=== PATIENT | male | born 1975 | race Caucasian/White ===

== ENCOUNTER 2025-06-22 14:06 | Emergency (ER) | payer MEDICARE, SELFPAY ==
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
--- NOTE | 2025-06-22 13:56 | CT_ITS ---
FINAL REPORT TECHNIQUE: Thin section axial images were obtained from the aortic arch to the skull base after intravenous contrast injection per CTA protocol. Multiplanar reconstruction images were obtained. Exam was performed using dose reduction techniques and the ALARA principle. CLINICAL HISTORY: trauma, critical injury suspected FINDINGS: CTA NECK: Aortic arch: There is a normal three-vessel configuration to the aortic arch. There is no significant stenosis of the great vessels at their origins. Right carotid artery: The right common carotid artery is patent without stenosis. The cervical portions of the right internal carotid artery are patent without stenosis. 0% stenosis per NASCET criteria. Left carotid artery: The left common carotid artery is patent without stenosis. There is a small amount of calcified plaque at the left carotid bulb measuring less than 30% stenosis. Remaining ICA is patent. 30% stenosis per NASCET criteria. Vertebral arteries: The vertebral arteries are patent. No significant stenosis. Other soft tissues: There is abnormal soft tissue density surrounding the right submandibular salivary gland, etiology unclear. Findings could be inflammatory. Neoplasm felt less likely. There is periapical lucency surrounding the posterior most right mandibular molar. Periapical abscess not excluded. IMPRESSION: 1. 0% stenosis of the right carotid artery, less than 30% stenosis of the left carotid artery. 2. Patent vertebral arteries. 3. Abnormal soft tissue attenuation surrounding the right submandibular salivary gland which could be infectious or inflammatory. Recommend clinical correlation. 4. Possible periapical abscess associated with a posterior right mandibular molar. Reviewed, Interpreted and Dictated by Leonor Mendoza MD Transcribed by Dominga Bustamante Authenticated and [facility]
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
--- NOTE | 2025-06-22 13:57 | CT_ITS ---
FINAL REPORT TECHNIQUE: Thin section axial images were obtained through the face without contrast. Coronal reconstruction images are obtained from the axial data. Exam was performed using dose reduction techniques such as automated exposure control, adjustment of the mA and kV according to patient size, and use of iterative reconstruction technique. CLINICAL HISTORY: trauma, critical injury suspected FINDINGS: There is irregularity of the anterior aspect of the right nasal bone concerning for nondisplaced fracture. There is adjacent subcutaneous air. A chronic appearing deformity is seen of the anterior wall of the right maxillary sinus. There is mucoperiosteal thickening of the bilateral maxillary sinuses, ethmoid air cells and frontal sinus. No other acute osseous abnormality is seen. Evaluation of the soft tissues is limited due to the fact that no soft tissue windows were submitted. There is edema surrounding the right submandibular salivary gland. Dental caries are noted. IMPRESSION: 1. Right nasal bone fracture. 2. Likely chronic defect of the anterior wall of the right maxillary sinus. 3. Nonspecific edema surrounding the right submandibular salivary gland. Recommend clinical correlation. Reviewed, Interpreted and Dictated by Leonor Mendoza MD Transcribed by Dominga Bustamante Authenticated and [facility]
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
--- NOTE | 2025-06-22 13:57 | XR_ITS ---
FINAL REPORT TECHNIQUE: Single view chest CLINICAL HISTORY: trauma FINDINGS: A single view of the chest was obtained. The heart and mediastinum are within normal limits. There are low lung volumes. Bibasilar opacities are seen, right greater than left which may present atelectasis or pneumonia. There is no pneumothorax. Bilateral rib fractures are seen including a right third and left fifth rib fracture. Please see CT for further evaluation. IMPRESSION: Bibasilar opacities, right greater than left which may resent atelectasis or pneumonia. Bilateral rib fractures without pneumothorax. Reviewed, Interpreted and Dictated by Leonor Mendoza MD Transcribed by Dominga Bustamante Authenticated and [facility]
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
[2025-06-22 14:04] LABS: Hematocrit 40.5 % (42.0-52.0); Hemoglobin 13.6 g/dL (14.1-18.0); Immature Granulocytes % 0.7 %; Mean Corpuscular HGB Conc 33.6 g/dL (31.8-35.4); Mean Corpuscular Hemoglobin 29.9 pg (27.0-31.2); Mean Corpuscular Volume 89.0 fl (80-94); Nucleated Red Blood Cells % 0 %; Platelet Count 321 K/mm3 (142-424); Red Blood Count 4.55 M/mm3 (4.60-6.20); Red Cell Distribution Width-SD 41.3 fL; White Blood Count 21.0 K/mm3 (4.8-10.8)
[2025-06-22 14:07] VITALS: BP 125/90; PULSE 88; RESP 15; TEMP 36.9; O2SAT 96; BMI 28.1
[2025-06-22 14:07] LABS: Albumin Level 4.1 g/dl (3.5-5.0); Chloride 106 mmol/L (98-107)
[2025-06-22 14:08] LABS: Microscopic, Urine URINE MICROSCOPIC (MICROSCOPIC)
[2025-06-22 14:08] LABS: Potassium 3.8 mmoL/L (3.5-5.1); Sodium 138 mmol/L (136-145)
[2025-06-22 14:10] LABS: Blood Urea Nitrogen 12 mg/dl (9-20); Creatinine,Serum 0.80 mg/dl (0.66-1.25); Estimated Glomerular Filt Rate 102 ml/min (>60); GFR (African American) 123 ML/MIN (>60)
[2025-06-22 14:11] LABS: Alanine Aminotransferase 343 U/L (12-78); Albumin/Globulin Ratio 1.5 (1.1-1.8); Alkaline Phosphatase 84 U/L (38-126); Anion Gap 10.8 mEq/L (5-15); Aspartate Amino Transferase 583 U/L (17-59); Bilirubin,Total 0.6 mg/dl (0.2-1.3); Calcium 8.7 mg/dl (8.4-10.2); Carbon Dioxide 25 mmol/L (22.0-30.0); Globulin 2.7 g/dL (1.3-3.2); Glucose 196 mg/dl (74-100); Total Protein,Serum 6.8 g/dl (6.3-8.2)
--- NOTE | 2025-06-22 14:13 | PC.NURSE ---
states a FAST exam is not needed at this time due to the pt not being hypotensive.
[2025-06-22 14:22] LABS: Troponin I 0.15 ng/ml (0.00-0.034)
[2025-06-22] MEDS: SODIUM CHLORIDE 0.9% 10ML SYR (RAD ONLY) 10 ML IV (14:22)
[2025-06-22] MEDS: IOPAMIDOL-370 (76%);100ML BOTTLE 80 ML IV ×2 (14:22→14:23)
[2025-06-22] MEDS: 0.9 % SODIUM CHLORIDE 50 ML VIAL IV ×2 (14:22)
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
--- OUTSIDE RECORDS SUMMARY | 2025-06-22 14:23 | XMS_ITS | Clinical Summary ---
Author Organization [facility] Address [address] [place] [id number] Care Team Providers Care Community Ambassador Name Role Phone Unknown, Attending Provider Primary Care Provide r Unavailable Source Comments This information has been disclosed to you from confidential records protectedfrom disclosure by state law. You shall make no further disclosure of thisinformation without the specific, written, and informed release of theindividual to whom it pertains, or as otherwise permitted by law. A generalauthorization for the release of medical or other information is not sufficientfor the purposes of therelease of HIV test results or diagnoses. [id number] Allergies No known active allergies Immunizations Immunization Administration Dates Next Due tdap 11/04/2024 Social History Tobacco Use Types Packs/Day Years Used Date Smoking Tobacco: Never Assessed Sex and Gender Information Value Date Recorded Sex Assigned at Not on file Legal Sex Male 7:59 PM EST Gender Identity Not on file Sexual Orientation Not on file Last Filed Vital Signs Vital Sign Reading Time Taken Comments Blood Pressure 128/91 11/04/2024 11:51 PM EST Pulse 84 11/04/2024 11:51 PM EST Temperature 36.5 C (97.7 F) 11/04/2024 4:39 PM EST Respiratory Rate 24 11/04/2024 11:51 PM EST Oxygen Saturation 99% 11/04/2024 11:51 PM EST Inhaled Oxygen Concentration 99% 11/04/2024 1 1:51 PM EST Weight - - Height - - Body Mass Index - - Plan of Treatment Health Maintenance Due Date Last Done Comments Abnormal Colonoscopy Follow Up 1973 Hepatitis C Screening (MyChart) 1973 Pulmonary Function Testing 1973 Alcohol Misuse Screening 12/18/1991 Depression Screening 12/18/1991 HIV Screening 12/18/1991 Immunization: Hepatitis B (1 of 3 - 19+ 3-dose series) 1992 Immunization: Pneumococcal (1 of 2 - PCV) 1992 Cologuard (FIT-DNA) 2018 Colonoscopy 2018 Colorectal Cancer Screening (MyChart) 2018 Stool Testing (gFOBT) 2018 Immunization: Zoster (1 of 2) 12/18/2023 Immunization: COVID-19 ( season) 2025 Immunization: Influenza (MyChart) (#1) 2025 Immunization: DTaP/Tdap/Td (2 - Td or Tdap) 11/04/2034 11/04/2024 Insurance LIABILITY Member Subscriber Plan / Payer (Ef fective 2024-Present) Name:Sandeep Hernandez Relation to Subscriber:Self Name:Sandeep Hernandez Payer ID:[id number] Group ID:[id number] Type:Indemnity Address: [facility] [address] [place] [address] MEDICARE A AND B Care Teams Community Ambassador Relationship Specialty Start Date End Date Unknown, Attending Provider PCP - General 11/04/24
[2025-06-22 14:27] LABS: Activated Partial Thrombo Time 21.9 seconds (22.8-30.6); INR 0.96 (0.9-1.1); Prothrombin Time 10.7 seconds (10.1-12.5)
[2025-06-22 14:29] LABS: Barbiturates Screen,Urine Negative ng/ml (<200)
[2025-06-22 14:30] LABS: Benzodiazepines Screen,Urine Positive ng/ml (<200); Bilirubin,Urine Negative (Negative); Color,Urine YELLOW (Yellow); Glucose,Urine (UA) Negative (Negative); Ketones,Urine Negative (Negative); Leukocyte Esterase,Urine Negative (Negative); PH,Urine 6.5 (5.0-8.5); Protein,Urine TRACE (Negative); Specific Gravity, Urine 1.020 (1.005-1.030); Urobilinogen,Urine 1.0 EU/dl (0.2)
[2025-06-22 14:31] LABS: Methadone Screen,Urine Negative ng/ml (<300)
[2025-06-22 14:33] LABS: Opiate Screen,Urine Negative ng/ml (<300)
[2025-06-22 14:34] LABS: Phencyclidine Screen,Urine Negative ng/ml (<25)
[2025-06-22 14:34] LABS: RBC Morphology Normal; Total Cells Counted 100
[2025-06-22 14:39] LABS: Bacteria,Urine Trace /lpf; Squamous Epithelial Cell,Urine Occasional #/hpf (0-5)
[2025-06-22 14:43] VITALS: BP 143/96; PULSE 87; O2SAT 97
[2025-06-22 15:00] VITALS: BP 139/93; PULSE 85; O2SAT 99
--- NOTE | 2025-06-22 15:16 | ECG_ITS ---
APPROVED REPORT Exam: Resting ECG HR:89 bpm ECG Measurements Heart Rate 89 AXES IA 140 P 75 QRSd 93 QRS 83 QT 372 T 106 QTc 419 Conclusion SINUS RHYTHM INCOMPLETE RIGHT BUNDLE BRANCH BLOCK [90+ ms QRS DURATION, TERMINAL R IN V1/V2, 40+ ms S IN I/aVL/V4/V5/V6] MODERATE ST DEPRESSION [0.05+ mV ST DEPRESSION] ABNORMAL ECG Electronically signed by : OH ORNELAS, 06/25/2025 09:27:52
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
[2025-06-22 15:30] VITALS: BP 128/92; PULSE 88; O2SAT 95
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
[2025-06-22 16:00] VITALS: BP 141/99; PULSE 86; RESP 23; O2SAT 95
--- NOTE | 2025-06-22 16:33 | PC.NURSE ---
[facility] CONTACTED FOR FLIGHT TRANSPORT IF POSSIBLE
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
[2025-06-22 16:54] VITALS: BP 126/86; PULSE 89; RESP 15; TEMP 36.9; O2SAT 93
[2025-06-22 17:13] LABS: Lipase 929 U/L (23-300)
== END 2025-06-22 16:58 | disposition other institution (70) ==
PROVIDERS: Student in an Organized Health Care Education/Training Program; Emergency Provider Student in an Organized Health Care Education/Training Program
DX: S36.039A Unspecified laceration of spleen, initial encounter (principal); S36.113A Laceration of liver, unspecified degree, initial encounter; S27.0XXA Traumatic pneumothorax, initial encounter; S27.321A Contusion of lung, unilateral, initial encounter; S22.32XA Fracture of one rib, left side, initial encounter for closed fracture; S02.2XXA Fracture of nasal bones, initial encounter for closed fracture; K66.1 Hemoperitoneum; R40.0 Somnolence; F14.90 Cocaine use, unspecified, uncomplicated; F13.90 Sedative, hypnotic, or anxiolytic use, unspecified, uncomplicated; F17.210 Nicotine dependence, cigarettes, uncomplicated; V49.40XA Driver injured in collision with unspecified motor vehicles in traffic accident, initial encounter
CPT/HCPCS: 70450; 70486; 70496; 70498; 71045; 71275; 72125; 72128; 72131; 72170; 73562; 74174; 80053; 80307; 80320; 80324; 81001; 83690; 84484; 85007; 85025; 85610; 85730; 93005; 99285; 99291; Q9967

== ENCOUNTER 2025-07-10 05:58 | Emergency (ER) | payer MEDICARE, SELFPAY ==
--- OUTSIDE RECORDS SUMMARY | 2025-06-22 17:45 | XMS_ITS | Encounter Summary ---
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 Routine, congestion sodium chloride 0.9 % flush 10 mL(Linked Group 1) 10 mL, Intravenous, As needed, Starting on Sun06/22/25 at 2106, Until Sun06/30/25 at 1557, Routine, line care Linked Groups Order Group 1: Insert peripheral IV (COMPLETED) Once, On Sun06/22/25 at 210, For 1 occurrence And Saline lock IV (COMPLETED) Once, On Sun06/22/25 at 210, For 1 occurrence And sodium chloride 0.9 % flush 10 mLJump to med 10 mL, Intravenous, Every 12 hours, First dose on Sun06/22/25 at 2110, Until Discontinued, Routine And sodium chloride 0.9 % flush 10 mLJump to med 10 mL, Intravenous, As needed, Starting on Sun06/22/25 at 2106, Until Sun06/30/25 at 1557, Routine, line care Group 2: HYDROmorphone 1 mg/mL DIRECTOR BUSINESS MANAGEMENT (naive protocol) (CANCELED)Jump to med Patient DIRECTOR BUSINESS MANAGEMENT Dose: 0.3 mg, DIRECTOR BUSINESS MANAGEMENT Lockout: 10 Minutes, Continuous Dose (MG/hr): 0 mg/hr, Nurse Loading Dose: Not Ordered, Intravenous, Routine And HYDROmorphone 1 mg/mL clinician bolus dose 0.2-0.8 mg (CANCELED)Jump to med 0.2-0.8 mg, Intravenous, Every 15 min PRN, Starting on Sun06/23/25 at 1519, Until Sun06/28/25 at 1800, Routine, severe pain Group 3: HYDROmorphone (Dilaudid) injection 0.25 mg (CANCELED) 0.25 mg, Intravenous, Every 4 hours PRN, Starting on Sun06/29/25 at 0810, Until Sun06/30/25 at 1226, Routine, mild - moderate pain, pain refractory to PO analgesics or if PO unavailable Or HYDROmorphone (Dilaudid) injection 0.5 mg (CANCELED)Jump to med 0.5 mg, Intravenous, Every 4 hours PRN, Starting on Sun06/29/25 at 0810, Until Sun06/30/25 at 1226, Routine, severe pain, pain refractory to PO analgesics or if PO unavailable Group 4: oxyCODONE (Roxicodone) immediate release tablet 5 mgJump to med 5 mg, Oral, Every 6 hours PRN, Starting on 06/28/25 at 1800, Until Sun06/30/25 at 1557, Routine, moderate pain Or oxyCODONE (Roxicodone) immediate release tablet 10 mgJump to med 10 mg, Oral, Every 6 hours PRN, Starting on Sun06/28/25 at 1800, Until Sun06/30/25 at 1557, Routine, severe pain documented in this encounter Additional Health Concerns Assessment Noted Time A Body Mass Index follow-up plan has been documented for the patient 06/30/2025 1:31 PM EDT documented as of this encounter Care Teams Adventure Guide Relationship Specialty Start Date End Date Pcp, [place] [address] PCP - General Family Medicine 06/22/25 documented as of this encounter
[2025-07-10] VITALS (13 sets, daily range): BP systolic 117–156; BP diastolic 74–108; PULSE 80–93; RESP 13–18; TEMP 36.6–36.7; O2SAT 94–99; BMI 22.8
--- OUTSIDE RECORDS SUMMARY | 2025-07-10 06:09 | XMS_ITS | Clinical Summary ---
Author Organization [facility] Address [address] [place] [id number] Care Team Providers Care Radiation Safety Officer Name Role Phone Unknown, Attending Provider Primary [...] therelease of HIV test results or diagnoses. [id number] Allergies No known active allergies Immunizations [...] Hernandez Relation to Subscriber:Self Name:Sandeep Hernandez Payer ID:[id number] Group ID:[id number] Type:Indemnity Address: [facility] [address] [place] [address] MEDICARE A AND B Care Teams Radiation Safety Officer Relationship Specialty Start Date End Date Unknown, Attending Provider PCP - General 11/04/24
--- OUTSIDE RECORDS SUMMARY | 2025-07-10 06:12 | XMS_ITS | Encounter Summary ---
Author Organization Healthcare Address [address] [place] [address] Care Team Providers Care Receivable Executive Name Role Phone Pcp, No Primary Care Provider Unavailabl e Encounter Details Date Type Department Care Team (Late st Contact Info) Description 06/22/2025 Orders Only External Location [address] [place] [address] Provider, External Social History Tobacco Use Types Packs/Day Years Used Date Smoking Tobacco: Never Assessed Humiliation, Afraid, Rape, and Kick questionnair e [...] any time in the past 12 m [facility], were you homeless or living in a jail (including now)? No 06/23/2025 [facility] Utilities Answer Date Recorded In the past 12 months has th e electric, gas, oil, or water company threatened to shut off services in your home? No 06/23/2025 Sex and Gender Information Value Date Recorded Sex Assigned at Not on file Legal Sex Male 8:19 PM EDT Gender Identity Not on file Sexual Orientation Not on file documented as of this encounter Functional Status * Calculated C-SSRS Risk Score (Lifetime/Recent) Answer Date of Assessment Author No Risk Indicated 06/25/2025 2:00 AM EDT Radha Woodward * Question Answer Date of Assessment Author 1. Wish to be (Past 1 Month) No 025 2:00 AM EDT Radha Woodward 2. Non-Specific Active Suici aman Thoughts (Past 1 Month) No 06/25/2025 2:00 AM EDT Nicolas Woodward 6. Suicidal Behavior (Lifetime) No 2:00 AM EDT Radha Woodward documented as of this encounter Plan of Treatment Not on file documented as of this encounter Procedures Procedure Name Priority Date/Time Associated Diagnosis Comments CT NEURO OUTSIDE IMAGES 06/22/2025 2:13 PM EDT documented in this encounter Results * CT NEURO OUTSIDE IMAGES (06/22/2025 2:13 PM EDT) Anatomical Region Laterality Modality Computed Tomogra phy 06/22/2025 2:13 PM EDT us External Provider IMG CT PROCEDURES Edited Resul t - Final documented in this encounter Visit Diagnoses Not on filedocumented in this encounter Additional Health Concerns Assessment Noted Time A Body Mass Index follow-up plan has been documented for the patient 06/30/2025 1:31 PM EDT documented as of this encounter Care Teams Receivable Executive Relationship Specialty Start Date End Date Pcp, [place] [address] PCP - General Family Medicine 06/22/25 documented as of this encounter
--- OUTSIDE RECORDS SUMMARY | 2025-07-10 06:12 | XMS_ITS | Clinical Summary ---
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 Narrative [facility] - 06/23/2025 11:03 PM EDT This test was developed and its performance characteristics determined by the [facility]. Although the media is FDA-approved, it is not FDA-approved for all specimen types submitted. The FDA has determined that such clearance or approval is not necessary. This test is used for surveillance purposes. It should not be regarded as investigational or for research. The [facility] is certified under the Clinical Laboratory Improvement Amendments of 1988 (CLIA-88) as qualified to perform high complexity clinical laboratory testing. Garrett Lott MD LAB MICROBIOLOGY - GENERAL ORDERABLES Final Result [facility] [address] [place] [address] * (ABNORMAL) Troponin T, High Sensitivity, 2 Hour, Plasma (06/22/2025 8:37 PM EDT) Pathologist [facility] Troponin T, High Sensitivity, 2 Hour 98(H) <19 ng/L 06/22/2025 9:03 PM EDT [facility] Troponin Delta 10(H) <10 ng/L 06/22/2025 9:03 PM EDT [facility] Troponin Delta Interpretation Significant 06/22/2025 9:03 PM EDT [facility] Comment:Significant change i n Troponin [...] 8:37 PM EDT 06/22/2025 8:38 PM EDT Result [facility] Gagandeep Serna MD LAB BLOOD ORDERABLES Final Result Performing Organization Address City/[facility]/ZIP Co de Phone Number [facility] [address] [place] [address] * PT-INR (06/22/2025 7:12 PM EDT) Prothrombin Time 13.8 12.0 - 14.3 sec 06/22/2025 7:29 PM EDT [facility] INR 1.0 0.9 - 1.1 06/22/2025 7:29 PM EDT [facility] Blood Venous blood specimen / Unknown Venipuncture / Unknown 06/22/2025 7:12 PM EDT 06/22/2025 7:17 PM EDT Narrative [facility] - 06/22/2025 7:29 PM EDT OPTIMAL INR RANGES FOR PATIENT ON ORAL ANTICOAGULANT THERAPY Prevention of venous thromboembolism INR 2.0 to 3.0 In patients with heart disease: Atrial fibrillation INR 2.0 to 3.0 Valvular heart disease INR 2.0 to 3.0 Tissue heart valves INR 2.0 to 3.0 Mechanical prosthetic valves INR 2.5 to 3.5 Prevention of recurrent [place] INR 2.5 to 3.5 Gagandeep Serna MD LAB BLOOD ORDERABLES Final Result Performing Organization Address City/[facility]/ZIP Co de Phone Number [facility] [address] [place] [address] * Type and screen (06/22/2025 7:12 PM EDT) ABO/Rh B Negative 06/22/2025 7:21 PM EDT [facility] Antibody Screen Negative 06/22/2025 7:21 PM EDT [facility] Specimen Expiration 06/25/2025 23:59 06/22/2025 7:21 PM EDT [facility] Blood Venous blood specimen / Unknown Venipuncture / Unknown 06/22/2025 7:12 PM EDT 06/22/2025 7:21 PM EDT Result [facility] Gagandeep Serna MD LAB BLOOD BANK TEST ORDERAB LES Final Result Performing Organization Address [facility]/ZIP Co de Phone Number BLOOD BANK [address] [place] [address], * (ABNORMAL) Lipase (06/22/2025 7:12 PM EDT) [facility] Lipase, Plasma 137(H) 19 - 63 U/L 06/22/2025 7:31 PM EDT [facility] Blood Venous blood specimen / Unknown Venipuncture / Unknown 06/22/2025 7:12 PM EDT 06/22/2025 7:17 PM EDT Gagandeep Serna MD LAB BLOOD ORDERABLES Final Result Performing Organization Address [facility] Co de Phone Number [facility] [address] [place] [address] * ED HIV 1/2 Antibody/Antigen Screen w/Reflex to HIV 1/2 Differentiation (06/22/2025 6:14 PM EDT) [facility] HIV 1 & 2 Antibody/Antigen Screen Non Reactive Non Reactive 06/22/2025 7:20 PM EDT [facility] Comment:Screening for HIV 1 & 2 antibodies, and P24 antigen is NONREACTIVE. No confirmatory testing is required. Blood Venous blood specimen / Unknown Venipuncture / Unknown 06/22/2025 6:14 PM EDT 06/22/2025 6:37 PM EDT Gagandeep Serna MD LAB BLOOD ORDERABLES Final Result Performing Organization Address City/[facility]/ZIP Co de Phone Number [facility] [address] [place] [address] * (ABNORMAL) Troponin now and 120 min (06/22/2025 6:14 PM EDT) [facility] Troponin T, High Sensitivity, 0 Hour 88(H) <19 ng/L 06/22/2025 6:43 PM EDT [facility] Blood Venous blood specimen / Unknown Venipuncture / Unknown 06/22/2025 6:14 PM EDT 06/22/2025 6:18 PM EDT Gagandeep Serna MD LAB BLOOD ORDERABLES Final Result [facility] [address] [place] [address] * Hepatitis C Antibody - ED (06/22/2025 6:14 PM EDT) Pathologist [facility] Hepatitis C Antibody Negative Negative 06/22/2025 7:18 PM EDT [facility] Blood Venous blood specimen / Unknown Venipuncture / Unknown 06/22/2025 6:14 PM EDT 06/22/2025 6:37 PM EDT Gagandeep Serna MD LAB BLOOD ORDERABLES Final Result Performing Organization Address [facility]/ZIP Co de Phone Number [facility] [address] [place] [address] * (ABNORMAL) CBC w/diff (06/22/2025 6:14 PM EDT) [facility] WBC Count 18.53(H) 3.70 - 10.30 10*3/uL LAB HEMATOLOGY METHOD 06/22/2025 6:21 PM EDT [facility] RBC Count 4.36(L) 4.60 - 6.10 10*6/uL LAB HEMATOLOGY METHOD 06/22/2025 6:21 PM EDT [facility] HGB 13.2(L) 13.7 - 17.5 g/dL LAB HEMATOLOGY METHOD 06/22/2025 6:21 PM EDT [facility] HCT 38.3(L) 40.0 - 51.0 % LAB HEMATOLOGY METHOD 06/22/2025 6:21 PM EDT [facility] Platelet Count 293 155 - 369 10*3/uL LAB HEMATOLOGY METHOD 06/22/2025 6:21 PM EDT [facility] MCV 88 79 - 98 fL LAB HEMATOLOGY METHOD 06/22/2025 6:21 PM EDT [facility] MCH 30.3 26.0 - 32.0 pg LAB HEMATOLOGY METHOD 06/22/2025 6:21 PM EDT [facility] MCHC 34.5 30.7 - 35.5 g/dL LAB HEMATOLOGY METHOD 06/22/2025 6:21 PM EDT [facility] RDW 12.6 11.5 - 14.5 % LAB HEMATOLOGY METHOD 06/22/2025 6:21 PM EDT [facility] MPV 8.9 8.8 - 12.5 fL LAB HEMATOLOGY METHOD 06/22/2025 6:21 PM EDT [facility] nRBC 0.0 <=0.0 per 100 WBCs LAB HEMATOLOGY METHOD 06/22/2025 6:21 PM EDT [facility] Differential Type Automated LAB HEMATOLOGY METHOD 06/22/2025 6:21 PM EDT [facility] Neutrophils % 85 % LAB HEMATOLOGY METHOD 06/22/2025 6:21 PM EDT [facility] Lymphocytes % 3 % LAB HEMATOLOGY METHOD 06/22/2025 6:21 PM EDT [facility] Monocytes % 12 % LAB HEMATOLOGY METHOD 06/22/2025 6:21 PM EDT [facility] Eosinophils % 0 % LAB HEMATOLOGY METHOD 06/22/2025 6:21 PM EDT [facility] Basophils % 0 % LAB HEMATOLOGY METHOD 06/22/2025 6:21 PM EDT [facility] Immature Granulocytes % 0 % LAB HEMATOLOGY METHOD 06/22/2025 6:21 PM EDT [facility] Neutrophils Absolute 15.72(H) 1.60 - 6.10 10*3/uL LAB HEMATOLOGY METHOD 06/22/2025 6:21 PM EDT [facility] Lymphocytes Absolute 0.56(L) 1.20 - 3.90 10*3/uL LAB HEMATOLOGY METHOD 06/22/2025 6:21 PM EDT [facility] Monocytes Absolute 2.13(H) 0.30 - 0.90 10*3/uL LAB HEMATOLOGY METHOD 06/22/2025 6:21 PM EDT [facility] Eosinophils Absolute 0.03 0.00 - 0.50 10*3/uL LAB HEMATOLOGY METHOD 06/22/2025 6:21 PM EDT [facility] Basophils Absolute 0.02 0.00 - 0.10 10*3/uL LAB HEMATOLOGY METHOD 06/22/2025 6:21 PM EDT [facility] Immature Granulocytes Absolute 0.07(H) 0.00 - 0.06 10*3/uL LAB HEMATOLOGY METHOD 06/22/2025 6:21 PM EDT [facility] Blood Venous blood specimen / Unknown Venipuncture / Unknown 06/22/2025 6:14 PM EDT 06/22/2025 6:18 PM EDT Narrative [facility] - 06/22/2025 6:21 PM EDT Therapeutic decision making should be based on absolute values, rather than percentages. us Gagandeep Serna MD LAB BLOOD ORDERABLES Final Result [facility] [address] [place] [address] * (ABNORMAL) CMP (06/22/2025 6:14 PM EDT) Glucose, Plasma 151(H) 74 - 99 mg/dL 06/22/2025 6:43 PM EDT [facility] BUN, Plasma 11 7 - 21 mg/dL 06/22/2025 6:43 PM EDT [facility] Creatinine, Plasma 0.81 0.70 - 1.20 mg/dL 06/22/2025 6:43 PM EDT [facility] BUN/Creatinine Ratio 14 06/22/2025 6:43 PM EDT [facility] Sodium, Plasma 141 136 - 145 mmol/L 06/22/2025 6:43 PM EDT [facility] Potassium, Plasma 3.9 3.6 - 4.9 mmol/L 06/22/2025 6:43 PM EDT [facility] Chloride, Plasma 107 97 - 107 mmol/L 06/22/2025 6:43 PM EDT [facility] CO2, Plasma 22 22 - 29 mmol/L 06/22/2025 6:43 PM EDT [facility] Anion Gap 12 6 - 16 mmol/L 06/22/2025 6:43 PM EDT [facility] Total Calcium, Plasma 8.4(L) 8.9 - 10.2 mg/dL 06/22/2025 6:43 PM EDT [facility] Total Protein 6.4 6.3 - 7.9 g/dL 06/22/2025 6:43 PM EDT [facility] Albumin, Plasma 3.8 3.5 - 5.2 g/dL 06/22/2025 6:43 PM EDT [facility] AST, Plasma 460(H) 10 - 50 U/L 06/22/2025 6:43 PM EDT [facility] ALT, Plasma 387(H) 10 - 50 U/L 06/22/2025 6:43 PM EDT [facility] Alkaline Phosphatase, Plasma 84 40 - 115 U/L 06/22/2025 6:43 PM EDT [facility] Total Bilirubin, Plasma 0.4 0.2 - 1.1 mg/dL 06/22/2025 6:43 PM EDT [facility] eGFRcr 106.7 mL/min/1.7 3m*2 06/22/2025 6:43 PM EDT [facility] Comment:Reported eGFRcr in m L/min/1.73m2 is based the CKD-EPI 2020 equation that does not use a race coefficient. Blood Venous blood specimen / Unknown Venipuncture / Unknown 06/22/2025 6:14 PM EDT 06/22/2025 6:18 PM EDT us Gagandeep Serna MD LAB BLOOD ORDERABLES Final Result [facility] [address] [place] [address] * ECG Adult (06/22/2025 6:05 PM EDT) EKG DIAGNOSIS CLASS Normal MUSE ECG Ventricular Rate 85 BPM MUSE ECG Atrial Rate 85 BPM MUSE ECG DE Interval 134 ms MUSE ECG QRSD Interval 88 ms MUSE ECG QT Interval 374 ms MUSE ECG QTC Interval 445 ms MUSE ECG P [place] 26 degrees MUSE ECG R [place] 73 degrees MUSE ECG T Wave [place] 71 degrees MUSE ECG Diagnosis Normal sinus rhythm MUSE ECG Diagnosis Normal ECG MUSE ECG Diagnosis MUSE ECG Diagnosis Confirmed by Cristhian Judge ([id number]) on 06/23/2025 8:43:49 AM MUSE ECG 06/22/2025 6:05 PM EDT 06/23/2025 8:43 AM EDT us Gagandeep Serna MD ECG ORDERABLES Final Resul t MUSE ECG * CT NEURO OUTSIDE IMAGES (06/22/2025 2:13 PM EDT) Anatomical Region Laterality Modality Computed Tomogra phy 06/22/2025 2:13 PM EDT us External Provider IMG CT PROCEDURES Edited Resul t - Final from Last 3 Months Insurance MEDICARE Advance Directives * DNR/DNI (Latest Code Status on File) Date Activated Date Inactivated Comments 06/23/2025 9:38 AM 06/30/2025 4:02 PM Question Answer Comments DNR determined on/before admission date? No I have reviewed the capacity from the link above and, if needed, have updated to appropriate status: Yes * Full Code Date Activated Date Inactivated Comments 06/22/2025 9:09 PM 06/23/2025 9:38 AM Question Answer Comments I have reviewed the capacity from the link above and, if needed, have updated to appropriate status: Yes Care Teams Traveling Freight Agent Relationship Specialty Start Date End Date Pcp, No [address] [place] [address] PCP - General Family Medicine 06/22/25
--- OUTSIDE RECORDS SUMMARY | 2025-07-10 06:12 | XMS_ITS | Encounter Summary ---
Author Organization Healthcare Address [address] [place] [address] Care Team Providers Care Occupational Health Nurse Supervisor Name Role Phone Pcp, No Primary Care Provider Unavailabl e Encounter Details Date Type Department Care Team (Latest Contact Info) Description 06/23/2025 Travel Social History Tobacco Use Types Packs/Day Years [...] any time in the past 12 m [facility], were you homeless or living in a residential (including now)? No 06/23/2025 [facility] Utilities Answer Date Recorded In the past [...] Date of Assessment Author No Risk Indicated 06/23/2025 8:00 PM EDT Nati Pope RN * Question Answer Date of Assessment Author 1. Wish to be (Past 1 Month) No 025 8:00 PM EDT Nati Pope RN 2. Non-Specific Active Suici aman Thoughts (Past 1 Month) No 06/23/2025 8:00 PM EDT Wally Pope RN 6. Suicidal Behavior (Lifetime) No 8:00 PM EDT Nati Pope RN documented as of this encounter Plan of Treatment Not on file documented as of this encounter Visit Diagnoses Not on filedocumented in this encounter Additional Health Concerns Assessment Noted Time A Body Mass Index follow-up plan has been documented for the patient 06/30/2025 1:31 PM EDT documented as of this encounter Care Teams Occupational Health Nurse Supervisor Relationship Specialty Start Date End Date Pcp, No [address] [place] [address] PCP - General Family Medicine 06/22/25 documented as of this encounter
--- OUTSIDE RECORDS SUMMARY | 2025-07-10 06:12 | XMS_ITS | Encounter Summary ---
Author Organization Healthcare Address [address] [place] [address] Care Team Providers Care Marble Machine Operator Name Role Phone Pcp, No Primary Care Provider Unavailabl e Encounter Details Date Type Department Care Team (Latest Contact Info) Description 06/24/2025 Travel Social History Tobacco Use Types Packs/Day Years Used Date Smoking Tobacco: Every Day Cigarettes Smokeless Tobacco: Never Alcohol Use Standard Drinks/Week Comments Yes 0 [...] any time in the past 12 m [facility], were you homeless or living in a long-term (including now)? No 06/23/2025 [facility] Utilities Answer Date Recorded In the past [...] Date of Assessment Author No Risk Indicated 06/24/2025 8:00 PM EDT Viv Wolf RN * Question Answer Date of Assessment Author 1. Wish to be (Past 1 Month) No 025 8:00 PM EDT Viv Wolf, RN 2. Non-Specific Active Suici aman Thoughts (Past 1 Month) No 06/24/2025 8:00 PM EDT Viv Wolf, ALYSA 6. Suicidal Behavior (Lifetime) No 5 8:00 PM EDT Viv Wolf, RN documented as of this encounter Plan of Treatment Not on file documented as of this encounter Visit Diagnoses Not on filedocumented in this encounter Additional Health Concerns Assessment Noted Time A Body Mass Index follow-up plan has been documented for the patient 06/30/2025 1:31 PM EDT documented as of this encounter Care Teams Marble Machine Operator Relationship Specialty Start Date End Date Pcp, No [address] [place] [address] PCP - General Family Medicine 06/22/25 documented as of this encounter
--- OUTSIDE RECORDS SUMMARY | 2025-07-10 06:12 | XMS_ITS | Encounter Summary ---
Author Organization Healthcare Address [address] [place] [address] Care Team Providers Care Corduroy Cutter Operator Name Role Phone Pcp, No Primary Care Provider Unavailabl e Encounter Details Date Type Department Care Team (Latest Contact Info) Description 06/22/2025 Travel Social History Tobacco Use Types Packs/Day [...] any time in the past 12 m [facility], were you homeless or living in a fdc (including now)? No 06/23/2025 [facility] Utilities Answer Date Recorded In the [...] Date of Assessment Author No Risk Indicated 06/22/2025 10:15 PM EDT Nati Pope RN * Question Answer Date of Assessment Author 1. Wish to be (Past 1 Month) No 025 10:15 PM EDT Nati Pope RN 2. Non-Specific Active Suici aman Thoughts (Past 1 Month) No 06/22/2025 10:15 PM EDT Jo Pope RN 6. Suicidal Behavior (Lifetime) No 10:15 PM EDT Nati Pope RN documented as of this encounter Plan of Treatment Not on file documented as of this encounter Visit Diagnoses Not on filedocumented in this encounter Additional Health Concerns Assessment Noted Time A Body Mass Index follow-up plan has been documented for the patient 06/30/2025 1:31 PM EDT documented as of this encounter Care Teams Corduroy Cutter Operator Relationship Specialty Start Date End Date Pcp, No [address] [place] [address] PCP - General Family Medicine 06/22/25 documented as of this encounter
--- OUTSIDE RECORDS SUMMARY | 2025-07-10 06:12 | XMS_ITS | Encounter Summary ---
Author Organization Healthcare Address [address] [place] [address] Care Team Providers Care Teacher Lip Reading Name Role Phone Pcp, No Primary Care Provider Unavailabl e Encounter Details Date Type Department Care Team (Latest Contact Info) Description 06/26/2025 Travel Social History Tobacco Use Types Packs/Day [...] were you homeless or living in a chcf (including now)? No 06/23/2025 [facility] Utilities Answer Date Recorded In the [...] Date of Assessment Author No Risk Indicated 06/26/2025 8:00 PM EDT Regina Arias RN * Question Answer Date of Assessment Author 1. Wish to be (Past 1 Month) No 06/26/2025 8:00 PM EDT Regina Handley RN 2. Non-Specific Active Suici aman Thoughts (Past 1 Month) No 06/26/2025 8:00 PM EDT Josie Handley RN 6. Suicidal Behavior (Lifetime) No 8:00 PM EDT Regina Handley RN documented as of this encounter Plan of Treatment Not on file documented as of this encounter Visit Diagnoses Not on filedocumented in this encounter Additional Health Concerns Assessment Noted Time A Body Mass Index follow-up plan has been documented for the patient 06/30/2025 1:31 PM EDT documented as of this encounter Care Teams Teacher Lip Reading Relationship Specialty Start Date End Date Pcp, No [address] [place] [address] PCP - General Family Medicine 06/22/25 documented as of this encounter
--- NOTE | 2025-07-10 06:18 | XR_ITS ---
FINAL REPORT CLINICAL HISTORY: broken ribs COMPARISON: 06/22/2025 FINDINGS: PA and lateral views of the chest were obtained. The cardiac and mediastinal silhouettes are within normal limits. Lingular and left lower lobe opacity and small left pleural effusion are favored to represent atelectasis. There is no pneumothorax. No acute rib fracture is identified on this exam. The known rib fractures are not well-seen. IMPRESSION: Lingular and left lower lobe opacity with small left pleural effusion, favor atelectasis. Known rib fractures not well-seen on today's exam. Reviewed, Interpreted and Dictated by Leonor Mendoza MD Transcribed by Marilou Amezcua Authenticated and [facility]
--- NOTE | 2025-07-10 06:24 | PC.NURSE ---
Pt hollering and moaning from room, saying I'm going to pass out instructed patient to swing around and lay back in the bed as to prevent hitting the floor. Pt states it hurts me to lay down I can't hardly do it Made patient aware that it is for his safety at this time. Pt continues to holler and scream profanity from room.
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
[2025-07-10] MEDS: HYDROMORPHONE 2MG/ML SYRINGE 1 MG IV (07:24)
[2025-07-10] MEDS: 0.9 % SODIUM CHLORIDE 50 ML VIAL IV (07:29)
[2025-07-10] MEDS: SODIUM CHLORIDE 0.9% 10ML SYR (RAD ONLY) 10 ML IV (07:29)
[2025-07-10] MEDS: IOPAMIDOL-370 (76%);100ML BOTTLE 80 ML IV (07:30)
[2025-07-10 07:31] LABS: Hematocrit 27.8 % (42.0-52.0); Hemoglobin 9.2 g/dL (14.1-18.0); Immature Granulocytes % 0.5 %; Mean Corpuscular HGB Conc 33.1 g/dL (31.8-35.4); Mean Corpuscular Hemoglobin 29.8 pg (27.0-31.2); Mean Corpuscular Volume 90.0 fl (80-94); Nucleated Red Blood Cells % 0 %; Platelet Count 603 K/mm3 (142-424); Red Blood Count 3.09 M/mm3 (4.60-6.20); Red Cell Distribution Width-SD 42.1 fL; White Blood Count 14.9 K/mm3 (4.8-10.8)
[2025-07-10 07:42] LABS: Albumin Level 3.5 g/dl (3.5-5.0); Chloride 100 mmol/L (98-107); Potassium 4.5 mmoL/L (3.5-5.1); Sodium 135 mmol/L (136-145)
[2025-07-10 07:45] LABS: Alanine Aminotransferase 32 U/L (12-78); Albumin/Globulin Ratio 1.2 (1.1-1.8); Alkaline Phosphatase 176 U/L (38-126); Anion Gap 9.5 mEq/L (5-15); Aspartate Amino Transferase 25 U/L (17-59); Bilirubin,Total 0.4 mg/dl (0.2-1.3); Calcium 9.0 mg/dl (8.4-10.2); Carbon Dioxide 30 mmol/L (22.0-30.0); Globulin 2.9 g/dL (1.3-3.2); Glucose 120 mg/dl (74-100); Total Protein,Serum 6.4 g/dl (6.3-8.2)
[2025-07-10 08:02] LABS: Troponin I < 0.01 ng/ml (0.00-0.034)
[2025-07-10 08:39] LABS: RBC Morphology Normal; Total Cells Counted 100
--- NOTE | 2025-07-10 08:58 | PC.NURSE ---
ALYSA Jurado is paging General surgery at this time.
[2025-07-10 09:03] LABS: Blood Urea Nitrogen 16 mg/dl (9-20); Creatinine Clearance Estimated 105 mL/min (50-200); Creatinine,Serum 0.80 mg/dl (0.66-1.25); Estimated Glomerular Filt Rate 102 ml/min (>60); GFR (African American) 123 ML/MIN (>60)
--- NOTE | 2025-07-10 09:51 | PC.NURSE ---
[facility] shared images to [facility]. Called [facility] per for a patient transfer for New splenic hematoma with worsening fluid around the spleen, and a loculated Left pleural effusion.
--- NOTE | 2025-07-10 09:53 | PC.NURSE ---
is on the phone with now.
--- NOTE | 2025-07-10 10:25 | PC.NURSE ---
Dr. Lopez is on the phone with now.
--- NOTE | 2025-07-10 10:26 | PC.NURSE ---
call made to [facility] for pt transport to [facility]
--- NOTE | 2025-07-10 10:30 | PC.NURSE ---
[facility] accept ETA 40 minutes
--- NOTE | 2025-07-10 10:40 | PC.NURSE ---
went into pt room to have him sign the transfer record, pt reports that he does not want to go to , he just wants to go home. informed pt of risk and benfits of leaving against medical advice. pt reports that he is unable to afford his medical bills. informed pt that i could talk to care management and he does not want any help. MD gonzalez at bedside me while speaking with pt. informed pt of risk and benefit. pt still adament that he wants to leave and does not want to be transferred to another facility.
--- NOTE | 2025-07-10 10:42 | PC.NURSE ---
Patient refused to go by helicopter, I called [id number] per RN Adrien Terry and cancelled the helicopter.
[2025-07-10] MEDS: PIPERACILLIN/TAZO 4.5 GM in 0.9 % SODIUM CHLORIDE 100 ML IV (11:04)
--- NOTE | 2025-07-10 11:11 | PC.NURSE ---
call made to carmina yin [phone], carmina states that he is at work and unable to give pt a ride home. carmina suggested to call pts rachell britt for a ride home.
--- NOTE | 2025-07-10 11:15 | PC.NURSE ---
PCT karma went to check on pt, he states that he wants to go to now. report called to mahsa at [facility] called for pt transport
[2025-07-10 11:23] LABS: Troponin I < 0.01 ng/ml (0.00-0.034)
== END 2025-07-10 12:46 | disposition still patient (30) ==
PROVIDERS: Emergency Provider Student in an Organized Health Care Education/Training Program; PCP Family Medicine
DX: R10.12 Left upper quadrant pain (principal); S36 Injury of intra-abdominal organs; R07.89 Other chest pain; J90 Pleural effusion, not elsewhere classified; F17.210 Nicotine dependence, cigarettes, uncomplicated; V49.40XS Driver injured in collision with unspecified motor vehicles in traffic accident, sequela
CPT/HCPCS: 71046; 71275; 74174; 80053; 84484; 85007; 85025; 87040; 93005; 96365; 96375; 99285; J1171; J2543; Q9967